=== PATIENT | female | born 1995 | race Caucasian/White ===

== ENCOUNTER 2018-08-13 12:01 | Emergency (ER) | payer SELFPAY ==
[~2018-08-13] VITALS: Ht 172.7 cm; Wt 61.2 kg
[2018-08-13 12:53] LABS: BACTERIA,URINE MANY /HPF (0-FEW); BILIRUBIN,URINE NEG (NEG); CLARITY,URINE HAZY; COLOR,URINE YELLOW; GLUCOSE,URINE NEG (NEG); NITRITE,URINE NEG (NEG); SQUAMOUS EPITHELIAL CELL,UR MANY /LPF; U PREG PATIENT NEGATIVE (NEG); UROBILINOGEN,URINE 0.2 mg/dL (0.2 mg/dL)
[2018-08-13] MEDS ORDERED: PHEN100T82 PO (13:05)
[2018-08-13] MEDS ORDERED: CIPR250T30 PO (13:05)
--- NOTE | 2018-08-13 13:05 | PHYS DOC ---
Past History Past Medical History: No Pertinent History Past Surgical History: No Surgical History Alcohol Use: None Drug Use: None Adult General Chief Complaint Chief Complaint: PAIN ON URINATION [facility] Patient is a 23 year old female who presents with complaining of painful urination for the last 3 days with decrease of urine output and urinary frequency and dysuria. Patient denies fever and chills, nausea and vomiting, abdominal pain, vaginal bleeding or discharge. Patient states she had history of UTI but this time her symptoms did not get better with [id number] medication. Review of Systems Review of Systems Constitutional: Denies fever or chills [] Eyes: Denies change in visual acuity, redness, or eye pain [] HENT: Denies nasal congestion or sore throat [] Respiratory: Denies cough or shortness of breath [] Cardiovascular: No additional information not addressed in [facility] [] GI: Denies abdominal pain, nausea, vomiting, bloody stools or diarrhea [] : Reports dysuria Musculoskeletal: Denies back pain or joint pain [] Integument: Denies rash or skin lesions [] Neurologic: Denies headache, focal weakness or sensory changes [] Endocrine: Denies polyuria or polydipsia [] All other systems were reviewed and found to be within normal limits, except as documented in this note. Allergies Allergies Allergies Coded Allergies Type Severity Reaction Last Updated Verified No Known Drug Allergies 08/13/18 No Physical Exam Physical Exam Constitutional: Well developed, well nourished, no acute distress, non-toxic appearance. [] HENT: Normocephalic, atraumatic Eyes: PERRLA, EOMI, conjunctiva normal, no discharge. [] Neck: Normal range of motion, no tenderness, supple, no stridor. [] Cardiovascular:Heart rate regular rhythm, no murmur [] Lungs & Thorax: Bilateral breath sounds clear to auscultation [] Abdomen: Bowel sounds normal, soft, no tenderness, no masses, no pulsatile masses. [] Skin: Warm, dry, no erythema, no rash. [] Back: No tenderness, no CVA tenderness. [] Extremities: No tenderness, no cyanosis, no clubbing, ROM intact, no edema. [] Neurologic: Alert and oriented X 3, normal motor function, normal sensory function, no focal deficits noted. [] Psychologic: Affect normal, judgement normal, mood normal. [] Current Patient Data Vital Signs Vital Signs Date Time Temp Pulse Resp B/P (MAP) Pulse Ox O2 Delivery O2 Flow Rate FiO2 08/13/18 12:12 97.8 90 18 99 Room Air Lab Results Laboratory Tests Test 08/13/18 12:30 Urine Collection Type Unknown Urine Color Yellow Urine Clarity Hazy Urine pH 5.5 Urine Specific [place] <=1.005 Urine Protein Neg (NEG-TRACE) Urine Glucose (UA) Neg mg/dL (NEG) Urine Ketones (Stick) Neg mg/dL (NEG) Urine Blood Small (NEG) Urine Nitrite Neg (NEG) Urine Bilirubin Neg (NEG) Urine Urobilinogen Dipstick 0.2 mg/dL (0.2 mg/dL) Urine Leukocyte Esterase Small (NEG) Urine RBC 1-2 /HPF (0-2) Urine WBC 5-10 /HPF (0-4) Urine Squamous Epithelial Cells Many /LPF Urine Bacteria Many /HPF (0-FEW) Urine Test Negative (NEG) EKG EKG [] Radiology/Procedures Radiology/Procedures [] Course & Med Decision Making Course & Med Decision Making Pertinent Labs reviewed. (See chart for details) discharge: I've spoken with the patient and/or caregivers. I've explained the patient's condition, diagnosis and treatment plan based on information available to me at this time. I've answered the patient's and/or caregivers questions and addressed any concerns. The patient and/or caregivers have a good understanding the patient's diagnosis, condition and treatment plan as can be expected at this point. Vital signs have been stabilized. The patient's condition is stable for discharge from the emergency department. The patient will pursue further outpatient evaluation with her primary care provider or other designated consulting physician as outlined in the discharge instructions. Patient and/or caregivers are agreeable to this plan of care and follow-up instructions have been explained in detail. The patient and/or caregivers have received these instructions in written format and expressed understanding of these discharge instructions. The patient and her caregivers are aware that if any significant change in condition or worsening of symptoms should prompt him to immediately return to this of the closest emergency department. If an emergent department is not readily available I would encourage him to call 911. Karissa Disclaimer Zainabon Disclaimer This electronic medical record was generated, in whole or in part, using a voice recognition dictation system. Departure Departure: Impression: Primary Impression: Urinary tract infection Additional Impression: Dysuria Disposition: HOME, SELF-CARE (at 1302) Condition: STABLE Referrals: PCP,NO (PCP) Patient Instructions: Dysuria, Urinary Tract Infection Additional Instructions: Drink plenty of liquids Follow-up with your primary care physician in 3-5 days Return to ER if not getting better Scripts Phenazopyridine Hcl (PYRIDIUM) 100 Mg Tablet 100 MG PO BID for dysuria, #10 TAB Prov: NENO DEL ROSARIO MD 08/13/18 Ciprofloxacin Hcl (CIPRO) 250 Mg Tablet 1 TAB PO BID for urinary tract infection, #14 TAB Prov: NENO DEL ROSARIO MD 08/13/18 Problem Qualifiers NENO DEL ROSARIO MD Aug 13, 2018 13:05
[2018-08-13 13:10] VITALS: BP 108/60
== END 2018-08-13 13:11 | disposition home or self-care (01) ==
LOC: ER 12:01
DX: N39.0 Urinary tract infection, site not specified (principal)
CPT/HCPCS: 81001; 81025; 87086; 99284

== ENCOUNTER 2018-08-15 20:35 | Emergency (ER) | payer SELFPAY ==
[~2018-08-15] VITALS: Ht 160 cm; Wt 59.9 kg
[~2018-08-15 20:35] MED LIST: CIPR250T30 PO; PHEN100T82 PO
[2018-08-15 21:11] LABS: BASO % 0 % (0-3); EOS # 0.1 x10^3/uL (0.0-0.7); EOS % 1 % (0-3); HEMATOCRIT 40.3 % (36.0-47.0); HEMOGLOBIN 13.5 g/dL (12.0-15.5); LYMPH # 2.1 x10^3/uL (1.0-4.8); LYMPH % 28 % (24-48); MEAN CORPUSCULAR HEMOGLOBIN 31 pg (25-35); MEAN CORPUSCULAR HGB CONC 34 g/dL (31-37); MEAN CORPUSCULAR VOLUME 94 fL (79-100); MONO # 0.8 x10^3/uL (0.0-1.1); MONO % 10 % (0-9); NEUT # 4.6 x10^3uL (1.8-7.7); NEUT % 60 % (31-73); PLATELET COUNT 252 x10^3/uL (140-400); RED BLOOD COUNT 4.31 x10^6/uL (3.50-5.40); RED CELL DISTRIBUTION WIDTH 13.4 % (11.5-14.5); WHITE BLOOD COUNT 7.6 x10^3/uL (4.0-11.0)
[2018-08-15] MEDS ORDERED: CONTRAST GIVEN MC PRN (21:15)
[2018-08-15 21:19] LABS: CALCIUM 9.3 mg/dL (8.5-10.1); CREATININE 0.8 mg/dL (0.6-1.0); GFR 87.4; POTASSIUM 3.2 mmol/L (3.5-5.1)
[2018-08-15] MEDS: IOHEXOL 300 MG/ML 75 ML VIAL. IV ONE (21:21)
[2018-08-15] MEDS: KETOROLAC 30 MG/ML VIAL. IV ONE (21:38)
[2018-08-15] MEDS: MORPHINE SULFATE 4 MG/ML DISP.SYRIN. IV ONE ×2 (21:39→22:58)
--- NOTE | 2018-08-15 22:01 | RAD ---
EXAM: Neck CT with intravenous contrast. HISTORY: Posterior auricular abscesses. TECHNIQUE: Computed tomographic images of the neck were obtained following the administration of 75 cc Omnipaque 300 intravenous contrast. *One or more of the following individualized dose reduction techniques were utilized for this examination: 1. Automated exposure control. 2. Adjustment of the mA and/or kV according to patient size. 3. Use of iterative reconstruction technique. COMPARISON: None. FINDINGS: There are small left complex fluid collections with surrounding fatty stranding within the soft tissues posterior to the left greater than right ear, measuring approximately 0.9 cm on the right and 1.3 cm on the left. The adjacent mastoid air cells are clear. The temporomandibular joints are intact. The parotid, submandibular and thyroid glands are unremarkable. The visualized portions the brain are unremarkable. The orbits are unremarkable. There is a tiny focus of mucosal thickening or mucus retention cyst within the sphenoid sinus. There is attenuation of the ostiomeatal units. There is a right shanika bullosa. There is no significant nasal septal deviation. There are caries within the left there maxillary molar and right first maxillary incisor. There are few prominent cervical chain lymph nodes, within physiologic limits for a patient of this age. The airways midline and widely patent. The lung apices are unremarkable. There is no suspicious osseous lesion. IMPRESSION: 1. Small complicated fluid collections with surrounding fatty stranding within the left greater than right posterior auricular soft tissues, suggesting small abscesses/phlegmons. The adjacent mastoid air cells are clear. 2. Suspected right first maxillary incisor and left third maxillary molar caries. No periapical abscess is seen. Electronically signed by: Luisa Thorne MD (08/15/2018 9:57 PM) [facility]
[2018-08-15] MEDS ORDERED: IBUP800T19 PO (22:33)
[2018-08-15] MEDS ORDERED: SULF1TAB24 PO (22:33)
[2018-08-15] MEDS ORDERED: HYDR-971 PO (22:33)
--- NOTE | 2018-08-15 22:40 | PHYS DOC ---
Adult General Chief Complaint Chief Complaint scalp lesions HPI HPI 23 years old female presented to the emergency department with legions behind her ear describes a tender swollen, warm to touch started about a week ago no fever no chills no headache She stated is initially was a pimple she scratched it multiple times and then she noticed a got bigger and more tender and noticed drainage from the left side Review of Systems Review of Systems Constitutional: Denies fever or chills [] Eyes: Denies change in visual acuity, redness, or eye pain [] HENT: Denies nasal congestion or sore throat [] Respiratory: Denies cough or shortness of breath [] Cardiovascular: No additional information not addressed in HPI [] GI: Denies abdominal pain, nausea, vomiting, bloody stools or diarrhea [] : Denies dysuria or hematuria [] Musculoskeletal: Denies back pain or joint pain [] Integument: Denies rash or skin lesions [] Neurologic: Denies headache, focal weakness or sensory changes [] Endocrine: Denies polyuria or polydipsia [] All other systems were reviewed and found to be within normal limits, except as documented in this note. Current Medications Current Medications Current Medications Medications (Trade) Dose Ordered Sig/Anjelica Start Time Stop Time Status Last Admin Dose Admin Info (Do NOT chart on this entry -- for MONITORING) 1 each PRN DAILY PRN 08/15/18 21:15 08/17/18 21:14 Iohexol (Omnipaque 300 Mg/ml) 75 ml 1X ONCE 08/15/18 21:30 08/15/18 21:31 DC 08/15/18 21:21 75 ML Ketorolac Tromethamine (Toradol 30mg Vial) 30 mg 1X ONCE 08/15/18 21:30 08/15/18 21:31 DC 08/15/18 21:38 30 MG Morphine Sulfate (Morphine 4mg Syringe) 4 mg 1X ONCE 08/15/18 23:00 08/15/18 23:01 Vancomycin HCl 1 gm/Sodium Chloride 250 ml @ 250 mls/hr 1X ONCE 08/15/18 22:45 08/15/18 23:44 UNV Allergies Allergies Allergies Coded Allergies Type Severity Reaction Last Updated Verified No Known Drug Allergies 08/13/18 No Physical Exam Physical Exam Constitutional: Well developed, well nourished, no acute distress, non-toxic appearance. [] HENT: Normocephalic, atraumatic, bilateral external ears normal, oropharynx moist, no oral exudates, nose normal. [] Eyes: PERRLA, EOMI, conjunctiva normal, no discharge. [] Neck: Normal range of motion, no tenderness, supple, no stridor. [] Cardiovascular:Heart rate regular rhythm, no murmur [] Lungs & Thorax: Bilateral breath sounds clear to auscultation [] Abdomen: Bowel sounds normal, soft, no tenderness, no masses, no pulsatile masses. [] Skin: 2 x 2 cm abscess on the scalp behind both ears bilaterally Back: No tenderness, no CVA tenderness. [] Extremities: No tenderness, no cyanosis, no clubbing, ROM intact, no edema. [] Neurologic: Alert and oriented X 3, normal motor function, normal sensory function, no focal deficits noted. [] Psychologic: Affect normal, judgement normal, mood normal. [] Current Patient Data Vital Signs Vital Signs Date Time Temp Pulse Resp B/P (MAP) Pulse Ox O2 Delivery O2 Flow Rate FiO2 08/15/18 21:39 18 98 Room Air 08/15/18 20:48 99.5 116 Lab Results Laboratory Tests Test 08/15/18 21:00 White Blood Count 7.6 x10^3/uL (4.0-11.0) Red Blood Count 4.31 x10^6/uL (3.50-5.40) Hemoglobin 13.5 g/dL (12.0-15.5) Hematocrit 40.3 % (36.0-47.0) Mean Corpuscular Volume 94 fL (79-100) Mean Corpuscular Hemoglobin 31 pg (25-35) Mean Corpuscular Hemoglobin Concent 34 g/dL (31-37) Red Cell Distribution Width 13.4 % (11.5-14.5) Platelet Count 252 x10^3/uL (140-400) Neutrophils (%) (Auto) 60 % (31-73) Lymphocytes (%) (Auto) 28 % (24-48) Monocytes (%) (Auto) 10 % (0-9) H Eosinophils (%) (Auto) 1 % (0-3) Basophils (%) (Auto) 0 % (0-3) Neutrophils # (Auto) 4.6 x10^3uL (1.8-7.7) Lymphocytes # (Auto) 2.1 x10^3/uL (1.0-4.8) Monocytes # (Auto) 0.8 x10^3/uL (0.0-1.1) Eosinophils # (Auto) 0.1 x10^3/uL (0.0-0.7) Basophils # (Auto) 0.0 x10^3/uL (0.0-0.2) Sodium Level 137 mmol/L (136-145) Potassium Level 3.2 mmol/L (3.5-5.1) L Chloride Level 100 mmol/L (98-107) Carbon Dioxide Level 31 mmol/L (21-32) Anion Gap 6 (6-14) Blood Urea Nitrogen 13 mg/dL (7-20) Creatinine 0.8 mg/dL (0.6-1.0) Estimated GFR (Cockcroft-Gault) 87.4 Glucose Level 96 mg/dL (70-99) Calcium Level 9.3 mg/dL (8.5-10.1) EKG EKG [] Radiology/Procedures Radiology/Procedures [] Impressions: MPRESSION: 1. Small complicated fluid collections with surrounding fatty stranding within the left greater than right posterior auricular soft tissues, suggesting small abscesses/phlegmons. The adjacent mastoid air cells are clear. 2. Suspected right first maxillary incisor and left third maxillary molar caries. No periapical abscess is seen. Course & Med Decision Making Course & Med Decision Making Pertinent Labs and Imaging studies reviewed. (See chart for details) [] Final Impression Final Impression Abscess drainage consent obtained Routine skin prep Lidocaine 2% to use locally Blade size 11 used Manual decompression with irrigation about 5 mL of pus drained want irrigated with normal saline 500 mL Culture sent[] Problems: (1) Scalp abscess Dragon Disclaimer Dragon Disclaimer This electronic medical record was generated, in whole or in part, using a voice recognition dictation system. CA HAM MD Aug 15, 2018 22:40
[2018-08-15] MEDS ORDERED: IV NORMAL SALINE 250ML 250 ML ONE (22:54)
[2018-08-15] MEDS ORDERED: VANCOMYCIN 1 GM VIAL. ONE ×2 (22:54)
[2018-08-15] MEDS: VANCOMYCIN 1 GM in IV NORMAL SALINE 250ML 250 ML IV ONE (22:59)
[2018-08-16] VITALS: BP 111/72
== END 2018-08-16 00:17 | disposition home or self-care (01) ==
LOC: ER 20:35
DX: L02.811 Cutaneous abscess of head [any part, except face] (principal)
CPT/HCPCS: 10060; 36415; 70491; 80048; 85025; 87070; 96365; 96375; 96376; 99285; J1885; J2270; J3370; J7050; Q9967

== ENCOUNTER 2018-11-22 21:24 | Emergency (ER) | payer SELFPAY ==
[~2018-11-22] VITALS: Ht 162.6 cm; Wt 56.2 kg
[~2018-11-22 21:24] MED LIST changes: +HYDR-3165 PO; +IBUP800T19 PO; +SULF1TAB24 PO
--- NOTE | 2018-11-22 22:02 | ED.ADGEN ---
Past History Past Medical History: No Pertinent History Past Surgical History: No Surgical History Alcohol Use: None Drug Use: None Adult General Chief Complaint Chief Complaint DYSPNEA HPI HPI 23 years old female presented to the emergency department by ambulance stated I don't feel good she stated that she smokes weed AND then ate weed candy that she started experiencing weird feelings associated with shortness of breath and nausea no on any other symptoms Review of Systems Review of Systems Constitutional: Denies fever or chills [] Eyes: Denies change in visual acuity, redness, or eye pain [] HENT: Denies nasal congestion or sore throat [] Respiratory: Denies cough or shortness of breath [] Cardiovascular: No additional information not addressed in HPI [] GI: Denies abdominal pain, nausea, vomiting, bloody stools or diarrhea [] : Denies dysuria or hematuria [] Musculoskeletal: Denies back pain or joint pain [] Integument: Denies rash or skin lesions [] Neurologic: Denies headache, focal weakness Endocrine: Denies polyuria or polydipsia [] All other systems were reviewed and found to be within normal limits, except as documented in this note. Current Medications Current Medications Current Medications Medications (Trade) Dose Ordered Sig/Anjelica Start Time Stop Time Status Last Admin Dose Admin Sodium Chloride 1,000 ml @ 1,000 mls/hr 1X ONCE 11/22/18 22:30 11/22/18 23:29 Allergies Allergies Allergies Coded Allergies Type Severity Reaction Last Updated Verified No Known Drug Allergies 11/22/18 No Physical Exam Physical Exam HENT: Normocephalic, atraumatic, bilateral external ears normal, oropharynx moist, no oral exudates, nose normal. [] Eyes: PERRLA, EOMI, conjunctiva normal, no discharge. [] Neck: Normal range of motion, no tenderness, supple, no stridor. [] Cardiovascular:Heart rate regular rhythm, no murmur [] Lungs & Thorax: Bilateral breath sounds clear to auscultation [] Abdomen: Bowel sounds normal, soft, no tenderness, no masses, no pulsatile masses. [] Skin: Warm, dry, no erythema, no rash. [] Back: No tenderness, no CVA tenderness. [] Extremities: No tenderness, no cyanosis, no clubbing, ROM intact, no edema. [] Neurologic: Alert and oriented X 3, normal motor function, normal sensory function, no focal deficits noted. [] Current Patient Data Vital Signs Vital Signs Date Time Temp Pulse Resp B/P (MAP) Pulse Ox O2 Delivery O2 Flow Rate FiO2 11/22/18 22:01 97.7 75 13 100 Room Air Lab Results Laboratory Tests Test 11/22/18 22:20 11/22/18 22:25 11/22/18 22:36 White Blood Count 8.0 x10^3/uL (4.0-11.0) Red Blood Count 4.33 x10^6/uL (3.50-5.40) Hemoglobin 13.4 g/dL (12.0-15.5) Hematocrit 41.0 % (36.0-47.0) Mean Corpuscular Volume 95 fL (79-100) Mean Corpuscular Hemoglobin 31 pg (25-35) Mean Corpuscular Hemoglobin Concent 33 g/dL (31-37) Red Cell Distribution Width 14.5 % (11.5-14.5) Platelet Count 268 x10^3/uL (140-400) Neutrophils (%) (Auto) 59 % (31-73) Lymphocytes (%) (Auto) 29 % (24-48) Monocytes (%) (Auto) 11 % (0-9) H Eosinophils (%) (Auto) 0 % (0-3) Basophils (%) (Auto) 1 % (0-3) Neutrophils # (Auto) 4.7 x10^3uL (1.8-7.7) Lymphocytes # (Auto) 2.3 x10^3/uL (1.0-4.8) Monocytes # (Auto) 0.9 x10^3/uL (0.0-1.1) Eosinophils # (Auto) 0.0 x10^3/uL (0.0-0.7) Basophils # (Auto) 0.0 x10^3/uL (0.0-0.2) Sodium Level 143 mmol/L (136-145) Potassium Level 3.6 mmol/L (3.5-5.1) Chloride Level 106 mmol/L (98-107) Carbon Dioxide Level 29 mmol/L (21-32) Anion Gap 8 (6-14) Blood Urea Nitrogen 17 mg/dL (7-20) Creatinine 0.8 mg/dL (0.6-1.0) Estimated GFR (Cockcroft-Gault) 87.4 Glucose Level 112 mg/dL (70-99) H Calcium Level 8.6 mg/dL (8.5-10.1) Urine Opiates Screen Pos (NEG) Urine Methadone Screen Neg (NEG) Urine Barbiturates Neg (NEG) Urine Phencyclidine Screen Neg (NEG) Urine Amphetamine/Methamphetamine Pos (NEG) Urine Benzodiazepines Screen Neg (NEG) Urine Cocaine Screen Neg (NEG) Urine Cannabinoids Screen Pos (NEG) Urine Ethyl Alcohol Neg (NEG) POC Urine HCG, Qualitative hcg negative (Negative) EKG EKG [] Radiology/Procedures Radiology/Procedures [] Course & Med Decision Making Course & Med Decision Making Pertinent Labs and Imaging studies reviewed. (See chart for details) [] Final Impression Final Impression [] Problems: (1) Drug addiction Dragon Disclaimer Dragon Disclaimer This electronic medical record was generated, in whole or in part, using a voice recognition dictation system. CA HAM MD Nov 22, 2018 22:02
[2018-11-22] MEDS ORDERED: IV NORMAL SALINE 1,000ML 1,000 ML IV ONE (22:30)
[2018-11-22 22:46] LABS: BASO % 1 % (0-3); EOS % 0 % (0-3); HEMOGLOBIN 13.4 g/dL (12.0-15.5); LYMPH # 2.3 x10^3/uL (1.0-4.8); LYMPH % 29 % (24-48); MEAN CORPUSCULAR HEMOGLOBIN 31 pg (25-35); MEAN CORPUSCULAR HGB CONC 33 g/dL (31-37); MEAN CORPUSCULAR VOLUME 95 fL (79-100); MONO # 0.9 x10^3/uL (0.0-1.1); MONO % 11 % (0-9); NEUT # 4.7 x10^3uL (1.8-7.7); NEUT % 59 % (31-73); PLATELET COUNT 268 x10^3/uL (140-400); RED BLOOD COUNT 4.33 x10^6/uL (3.50-5.40); RED CELL DISTRIBUTION WIDTH 14.5 % (11.5-14.5)
[2018-11-22 22:49] LABS: BARBITURATES NEG (NEG); BENZODIAZEPINES NEG (NEG); CANNABINOIDS POS (NEG); COCAINE NEG (NEG); METHADONE NEG (NEG); OPIATES POS (NEG); PHENCYCLIDINE NEG (NEG)
[2018-11-22 22:50] LABS: AMPHETAMINE/METHAMPHETAMINE POS (NEG)
[2018-11-22 22:53] LABS: CALCIUM 8.6 mg/dL (8.5-10.1); CREATININE 0.8 mg/dL (0.6-1.0); GFR 87.4; POTASSIUM 3.6 mmol/L (3.5-5.1)
--- NOTE | 2018-11-22 22:54 | RAD ---
AP portable chest radiograph 11/22/2018 Clinical History: Shortness of breath. An AP erect portable digital radiograph of the chest was obtained. No previous studies are available for comparison. The cardiac and mediastinal silhouettes are within normal limits in size and configuration. No acute pulmonary infiltrate is seen. No pleural effusion or pneumothorax is noted. The osseous structures are grossly intact. IMPRESSION: No acute abnormality is seen. Electronically signed by: David Barnett MD (11/22/2018 10:52 PM) [facility]
[2018-11-22 23:20] VITALS: BP 110/60
== END 2018-11-22 23:09 | disposition home or self-care (01) ==
LOC: ER 21:24
DX: F12.20 Cannabis dependence, uncomplicated (principal)
CPT/HCPCS: 36415; 71045; 80048; 80307; 81025; 85025; 99284; G0480; J7030

== ENCOUNTER 2020-03-17 20:51 | Emergency (ER) | payer SELFPAY ==
[~2020-03-17] VITALS: Ht 162.6 cm; Wt 57.0 kg
[2020-03-17 20:51] VITALS: BP 117/71
[2020-03-17] MEDS ORDERED: ERYTHROMYCIN 0.5% OPHTH OINTMENT 1GM TUBE. OU ONE (21:30)
[2020-03-17] MEDS ORDERED: cefTRIAXone IM 1 GM VIAL IM ONE (21:30)
[2020-03-17] MEDS ORDERED: CEPH500C PO (21:30)
--- NOTE | 2020-03-17 21:31 | PHYS DOC ---
Past History Past Medical History: No Pertinent History Past Surgical History: No Surgical History Smoking: Cigarettes Alcohol Use: None Drug Use: Heroin, Marijuana General Adult EDM: Chief Complaint: EYE PROBLEMS HPI: HPI: Patient is a 25 year old female who presents for evaluation of a bilateral eye redness with obvious infection. There is yellow and greenish drainage coming from both eyes. There was significant conjunctival redness as well. Patient is here with her domestic partner who has a similar eye infection but not nearly as severe. Patient is complaining of some mild blurred vision but no fevers and chills. Patient has no other physical complaints. Symptoms been progressing for more than 1 week. Review of Systems: Review of Systems: Constitutional: Denies fever or chills Eyes: Bilateral eye redness, blurred vision reported, crusting and drainage noted HENT: Denies nasal congestion or sore throat Respiratory: Denies cough or shortness of breath Cardiovascular: Denies chest pain or edema GI: Denies abdominal pain, nausea, vomiting, bloody stools or diarrhea : Denies dysuria Musculoskeletal: Denies back pain or joint pain Integument: Denies rash Neurologic: Denies headache, focal weakness or sensory changes Endocrine: Denies polyuria or polydipsia Lymphatic: Denies swollen glands Psychiatric: Denies depression or anxiety Heart Score: Risk Factors: Risk Factors: DM, Current or recent (<one month) smoker, HTN, HLP, family history of CAD, obesity. Risk Scores: Score 0 - 3: 2.5% MACE over next 6 weeks - Discharge Home Score 4 - 6: 20.3% MACE over next 6 weeks - Admit for Clinical Observation Score 7 - 10: 72.7% MACE over next 6 weeks - Early Invasive Strategies Current Medications: Current Meds: Current Medications Medications (Trade) Dose Ordered Sig/Anjelica Start Time Stop Time Status Last Admin Dose Admin Ceftriaxone Sodium (Rocephin Im) 1 gm 1X ONCE 03/17/20 21:30 03/17/20 21:31 Erythromycin (Romycin) 0.25 inch 1X ONCE 03/17/20 21:30 03/17/20 21:31 Allergies: Allergies: Allergies Coded Allergies Type Severity Reaction Last Updated Verified No Known Drug Allergies 11/22/18 No Physical Exam: PE: Constitutional: Well developed, well nourished, mild acute distress, non-toxic appearance. [] HENT: Normocephalic, atraumatic, bilateral external ears normal, oropharynx moist, no oral exudates, nose normal. [] Eyes: PERRL, EOMI, bilateral chemosis and conjunctival erythema noted, yellow- green drainage noted both eyes, no obvious periorbital cellulitis noted, blurry vision reported with some mild diminished vision bilaterally. No obvious corneal injury noted [] Neck: Normal range of motion, no tenderness, supple, no stridor. [] Cardiovascular:Heart rate regular rhythm, no murmur [] Lungs & Thorax: Bilateral breath sounds clear to auscultation [] Abdomen: Bowel sounds normal, soft, no tenderness, no masses [] Skin: Warm, dry, no erythema, no rash. [] Back: No tenderness. [] Extremities: No tenderness, no cyanosis, no clubbing, ROM intact, no edema. [] Neurologic: Alert and oriented X 3, normal motor function, normal sensory function, no focal deficits noted. [] Psychologic: Affect normal, judgement normal, mood normal. [] Current Patient Data: Vital Signs: Vital Signs Date Time Temp Pulse Resp B/P (MAP) Pulse Ox O2 Delivery O2 Flow Rate FiO2 20 20:51 98.6 95 16 117/71 (86) 100 Room Air EKG: EKG: [] Radiology/Procedures: Radiology/Procedures: [] Course & Med Decision Making: Course & Med Decision Making Pertinent Labs and Imaging studies reviewed. (See chart for details) Patient has a significant bilateral probable bacterial conjunctivitis, it is moderately advanced at this time. Some mild vision changes noted. Patient had Gram stain cultures collected from the eye drainage. Patient given an injection of Rocephin 1 g IM. Furthermore patient will be started on erythromycin ointment to use quarter inch both lower lids 4 times a day for the next 5 days. I stressed with the patient it is imperative that she have an eye doctor recheck her eye in the next 24 to 48 hours. Should she develop worsening symptoms she should come back to the hospital. There is no obvious clinical evidence of preseptal cellulitis or abscess. Prescription for Keflex given in addition to the erythromycin ointment that was dispensed Karissa Disclaimer: Karissa Disclaimer: This electronic medical record was generated, in whole or in part, using a voice recognition dictation system. Departure Departure: Impression: Primary Impression: Bacterial conjunctivitis of both eyes Additional Impression: Drug addiction Disposition: 01 HOME/RESIDENCE PRIOR TO ADM Condition: STABLE Referrals: PCP,NO (PCP) CINDY LOYA MD Patient Instructions: Bacterial Conjunctivitis, Drug Abuse, FAQs Additional Instructions: Use the erythromycin ointment 4 times a day on the lower lids for the next 5 days. Take the Keflex as directed as well. It is imperative that you follow-up with an eye doctor in the next 24 to 48 hours for recheck. You have vision changes and we need to make sure this infection improves. Failure to have close follow-up could result in worsening condition, blindness etc. Scripts Cephalexin (CEPHALEXIN) 500 Mg Capsule 1 CAP PO QID for eye infection, #40 CAP Prov: LYNN LÓPEZ DO 03/17/20 Justification of Admission: Justification of Admission: Justification of Admission Dx: N/A LYNN LÓPEZ DO Mar 17, 2020 21:31
== END 2020-03-17 21:40 | disposition home or self-care (01) ==
LOC: ER 20:51
DX: H10.89 Other conjunctivitis (principal); B97.89 Other viral agents as the cause of diseases classified elsewhere; F19.20 Other psychoactive substance dependence, uncomplicated; F17.210 Nicotine dependence, cigarettes, uncomplicated; F12.10 Cannabis abuse, uncomplicated
CPT/HCPCS: 87070; 96372; 99283; J0696

== ENCOUNTER 2020-10-27 14:17 | Emergency (ER) | payer SELFPAY ==
[~2020-10-27] VITALS: Ht 160 cm; Wt 54.0 kg
[~2020-10-27 14:17] MED LIST changes: +CEPH500C PO
[2020-10-27] MEDS ORDERED: IV NORMAL SALINE 1,000ML 1,000 ML IV ONE (14:30)
[2020-10-27] MEDS ORDERED: cefTRIAXone SODIUM 1 GM VIAL ONE (14:38)
[2020-10-27] MEDS ORDERED: IV NORMAL SALINE 50ML 50 ML ONE (14:39)
--- NOTE | 2020-10-27 14:40 | PHYS DOC ---
Past History Past Medical History: No Pertinent History (MARC MCDONOUGH APRN) Past Surgical History: No Surgical History (MARC MCDONOUGH APRN) Smoking: Cigarettes Alcohol Use: None Drug Use: Heroin, Marijuana (MARC MCDONOUGH APRN) Adult General Chief Complaint Chief Complaint: SORE THROAT HPI HPI Patient is a 25 year old female patient who presents with facial and neck swelling for the past 3 days, worsening each day. States she has not been able to eat or drink much and has seemed to be unable to swallow well. States no fevers, no nausea, no vomiting. States her neck and throat just feel very swollen and sore. Denies exposure to other ill persons. States she has never had this in the past and has not taken any medications for her swelling. (MARC MCDONOUGH APRN) Review of Systems Review of Systems Constitutional: Denies fever reports she has had some chills and malaise Eyes: Denies change in visual acuity, redness, or eye pain [] HENT: Denies nasal congestion. states discomfort to throat and neck, states swelling to neck. Respiratory: Denies cough or shortness of breath [] Cardiovascular: No additional information not addressed in HPI [] GI: Denies abdominal pain, nausea, vomiting, bloody stools or diarrhea [] : Denies dysuria or hematuria [] Musculoskeletal: Denies back pain or joint pain [] Integument: Denies rash or skin lesions [] Neurologic: Denies headache, focal weakness or sensory changes [] Endocrine: Denies polyuria or polydipsia [] All other systems were reviewed and found to be within normal limits, except as documented in this note. (MARC MCDONOUGH APRN) Current Medications Current Medications Current Medications Medications (Trade) Dose Ordered Sig/Anjelica Start Time Stop Time Status Last Admin Dose Admin Ceftriaxone Sodium 1 gm/ Sodium Chloride 50 ml @ 100 mls/hr 1X ONCE 10/27/20 14:30 10/27/20 14:59 UNV Sodium Chloride 1,000 ml @ 1,000 mls/hr 1X ONCE 10/27/20 14:30 10/27/20 15:29 UNV (MARC MCDONOUGH APRN) Allergies Allergies Allergies Coded Allergies Type Severity Reaction Last Updated Verified No Known Drug Allergies 11/22/18 No (MARC MCDONOUGH APRN) Physical Exam Physical Exam Constitutional: Well developed, well nourished, no acute distress, appears uncomfortable [] Converses with hoarse voice. HENT: Normocephalic, atraumatic, bilateral external ears normal, oropharynx moist, tongue with moderate swelling and erythema, sublingular area swollen, firm, tender with erythema. Limited ability to open mouth due to swelling, no bony tenderness of mandible. Poor dentition Eyes: PERRLA, EOMI, conjunctiva normal, no discharge. [] Neck: Normal range of motion, no tenderness, supple, no stridor on auscultation. Swollen anterior lymph nodes bilaterally. full ROM to neck[] Cardiovascular:Heart rate regular rhythm, no murmur [] tachycardic Lungs & Thorax: Bilateral breath sounds clear to auscultation [] Abdomen: Bowel sounds normal, soft, no tenderness, no masses, no pulsatile masses. [] Skin: Warm, dry, no erythema, no rash. [] Several facial lesions noted, with large amount of makeup over face and concealing lesions. Back: No tenderness, no CVA tenderness. [] Extremities: No tenderness, no cyanosis, no clubbing, ROM intact, no edema. [] Neurologic: Alert and oriented X 3, normal motor function, normal sensory function, no focal deficits noted. [] Psychologic: Affect normal, judgement normal, mood normal. [] (MARC MCDONOUGH APRN) Physical Exam Constitutional: Well developed, well nourished, no acute distress, non-toxic appearance HENT: Normocephalic, atraumatic, submandubular swelling and induration noted, no gingival swelling noted Eyes: Conjunctiva normal, no discharge Neck: Normal range of motion, no tenderness, supple Lungs & Thorax: No respiratory distress, equal chest rise and fall Skin: Warm, dry, no erythema, no rash Extremities: No tenderness, ROM intact, no edema Neurologic: Alert and oriented X 3, no focal deficits noted Psychologic: Affect normal, judgment normal (MADDI MELO DO) Current Patient Data Vital Signs Vital Signs Date Time Temp Pulse Resp B/P (MAP) Pulse Ox O2 Delivery O2 Flow Rate FiO2 10/27/20 14:20 99.4 122 24 126/77 (93) 100 (MARC MCDONOUGH APRN) EKG EKG [] (MARC MCDONOUGH APRN) Radiology/Procedures Radiology/Procedures NDICATION: Reason: fever / Spl. Instructions: / History: COMPARISON: November 2018 FINDINGS: Single view of chest obtained. No focal airspace consolidation. Cardiomediastinal contour unremarkable. No acute osseous abnormality. IMPRESSION: * No focal airspace consolidation or edema. * Groundglass nodular opacities seen on CT of the neck at the right upper lung is not well seen on plain film but could be infectious or inflammatory in nature. Electronically signed by: Aaliyah Nix MD (10/27/2020 4:11 PM) [id number] DICTATED AND SIGNED BY: AALIYAH NIX MD DATE: 10/27/20 160[] Exam: CT Neck with contrast INDICATION: Swelling TECHNIQUE: Sequential axial images through the neck obtained following the administration of 75 mL of Isovue-370 IV contrast. Sagittal and coronal reformatted images were reconstructed from the axial data and reviewed. Comparisons: 08/15/2018 FINDINGS: Visualized intracranial structures are unremarkable. Visualized paranasal sinuses and mastoid air cells are well-pneumatized. Cervical vasculature is patent. Nasopharynx, oropharynx, hypopharynx and larynx are unremarkable. There is a 1.6 cm peripherally enhancing fluid collection in the submental soft tissues. There is adjacent fat stranding and edema. Thyroid and salivary glands are within normal limits. There are several mildly enlarged submental lymph nodes noted. Patchy tree-in-bud nodularity noted in the superior segment of the right lower lobe. No suspicious osseous lesions or acute fractures. IMPRESSION: 1. A 1.6 cm peripherally enhancing fluid collection in the submental soft tissues favored represent abscess. 2. Patchy tree-in-bud nodularity of Mariee segment of the right upper lobe, may be infectious or inflammatory in etiology. Exposure: One or more of the following in the visualized dose reduction techniques were utilized for this examination: 1. Automated exposure control 2. Adjustment of the MA and/or KV according to patient size 3. Use of iterative of reconstructive technique Electronically signed by: Rowena Alcazar MD (10/27/2020 4:21 PM) [facility] (MARC MCDONOUGH APRN) Heart Score Risk Factors: Risk Factors: DM, Current or recent (<one month) smoker, HTN, HLP, family history of CAD, obesity. Risk Scores: Risk Factors: DM, Current or recent (<one month) smoker, HTN, HLP, family history of CAD, obesity. (MARC MCDONOUGH APRN) Course & Med Decision Making Course & Med Decision Making Pertinent Labs and Imaging studies reviewed. (See chart for details) []Patient with no airway concerns, conversational in room, no airway issues noted on imaging. Likely submental abscess due to poor dentition, will continue antibiotics and recommend patient follow up with dentist. Following fluids and IV ABx, she states she is feeling better. She looks more comfortable on reexamination. Is agreeable to discharge home with Rx for antibiotics and follow up (MARC MCDONOUGH APRN) Dragon Disclaimer Dragon Disclaimer This electronic medical record was generated, in whole or in part, using a voice recognition dictation system. (MARC MCDONOUGH APRN) Departure Departure: Impression: Primary Impression: Submental abscess Additional Impression: Poor dentition Disposition: 01 DC HOME SELF CARE/HOMELESS Condition: IMPROVED Referrals: PCP,NO (PCP) Patient Instructions: Abscess Additional Instructions: As discussed, you have an abscess under your tongue. Take the antibiotics as prescribed for the entire duration, even if you are feeling better. You should try to take some probiotics or even eat some yogurt with "active cultures" to help prevent yeast infections, which can be common with this medication. Make sure you are eating something when you take the medications. Get into a dentist to follow up about your teeth, as this may be a likely cause of your abscess. Scripts Clindamycin Hcl (CLINDAMYCIN HCL) 300 Mg Capsule 1 CAP PO TID for infection for 10 Days, #30 CAP Prov: MARC MCDONOUGH APRN 10/27/20 Attending Signature Attending Signature I have personally interviewed and examined the patient. All charts, labs, and imaging studies were reviewed. I agree with the PA/ICING COATER's findings, exam, and plan. (MADDI MELO DO) Problem Qualifiers MARC MCDONOUGH APRN Oct 27, 2020 14:40 MADDI MELO DO Oct 27, 2020 18:14
[2020-10-27] MEDS ORDERED: DEXAMETHASONE SOD PHOS 4 MG/ML VIAL. IVP ONE (14:45)
[2020-10-27] MEDS ORDERED: IOHEXOL 300 MG/ML 75 ML VIAL. IV ONE (14:45)
[2020-10-27] MEDS ORDERED: DEXAMETHASONE SOD PHOS 10 MG/ML VIAL. IV ONE (15:00)
[2020-10-27 15:01] LABS: BASO % 0 % (0-3); EOS # 0.1 x10^3/uL (0.0-0.7); EOS % 1 % (0-3); HEMOGLOBIN 12.4 g/dL (12.0-15.5); LYMPH # 1.4 x10^3/uL (1.0-4.8); LYMPH % 13 % (24-48); MEAN CORPUSCULAR HEMOGLOBIN 30 pg (25-35); MEAN CORPUSCULAR HGB CONC 33 g/dL (31-37); MEAN CORPUSCULAR VOLUME 93 fL (79-100); MONO # 0.9 x10^3/uL (0.0-1.1); MONO % 9 % (0-9); NEUT # 8.7 x10^3uL (1.8-7.7); NEUT % 78 % (31-73); PLATELET COUNT 335 x10^3/uL (140-400); RED CELL DISTRIBUTION WIDTH 13.8 % (11.5-14.5); WHITE BLOOD COUNT 11.1 x10^3/uL (4.0-11.0)
[2020-10-27 15:39] LABS: MONONUCLEOSIS PATIENT NEGATIVE (NEGATIVE)
--- NOTE | 2020-10-27 16:13 | RAD ---
INDICATION: Reason: fever / Spl. Instructions: / History: COMPARISON: November 2018 FINDINGS: Single view of chest obtained. No focal airspace consolidation. Cardiomediastinal contour unremarkable. No acute osseous abnormality. IMPRESSION: * No focal airspace consolidation or edema. * Groundglass nodular opacities seen on CT of the neck at the right upper lung is not well seen on p trini film but could be infectious or inflammatory in nature. Electronically signed by: Hernandez Daniel MD (10/27/2020 4:11 PM) [id number]
[2020-10-27 16:16] LABS: BLOOD UREA NITROGEN 11 mg/dL (7-20); BUN/CREATININE RATIO 14 (6-20); CALCIUM 8.8 mg/dL (8.5-10.1); CREATININE 0.8 mg/dL (0.6-1.0); GLUCOSE 97 mg/dL (70-99)
[2020-10-27 16:17] LABS: ANION GAP 6 (6-14); CHLORIDE 100 mmol/L (98-107); POTASSIUM 4.2 mmol/L (3.5-5.1); SODIUM 135 mmol/L (136-145)
--- NOTE | 2020-10-27 16:23 | RAD ---
Exam: CT Neck with contrast INDICATION: Swelling TECHNIQUE: Sequential axial images through the neck obtained following the administration of 75 mL of Isovue-370 IV contrast. Sagittal and coronal reformatted images were reconstructed from the axial da ta and reviewed. Comparisons: 08/15/2018 FINDINGS: Visualized intracranial structures are unremarkable. Visualized paranasal sinuses and mastoid air cells are well-pneumatized. Cervical vasculature is patent. Nasopharynx, oropharynx, hypopharynx and larynx are unremarkable. There is a 1.6 cm peripherally enhancing fluid collection in the submental soft tissues. There is adj acent fat stranding and edema. Thyroid and salivary glands are within normal limits. There are several mildly enlarged submental lymph nodes noted. Patchy tree-in-bud nodularity noted in the superior segment of the right lower lobe. No suspicious osseous lesions or acute fractures. IMPRESSION: 1. A 1.6 cm peripherally enhancing fluid collection in the submental soft tissues favored represent abscess. 2. Patchy tree-in-bud nodularity of Mariee segment of the right upper lobe, may be infectious or inf lammatory in etiology. Exposure: One or more of the following in the visualized dose reduction techniques were utilized for this examination: 1. Automated exposure control 2. Adjustment of the MA and/or KV according to patient size 3. Use of iterative of reconstructive technique Electronically signed by: Rowena Alcazar MD (10/27/2020 4:21 PM) [facility]
[2020-10-27 16:29] LABS: ALBUMIN/GLOBULIN RATIO 0.6 (1.0-1.7); ALK PHOS 110 U/L (46-116); ALT (SGPT) 17 U/L (14-59); AST (SGOT) 15 U/L (15-37); TOTAL BILIRUBIN 0.2 mg/dL (0.2-1.0); TOTAL PROTEIN 7.7 g/dL (6.4-8.2)
[2020-10-27 16:36] LABS: AMPHETAMINE/METHAMPHETAMINE POS (NEG); BARBITURATES NEG (NEG); BENZODIAZEPINES NEG (NEG); CANNABINOIDS NEG (NEG); COCAINE NEG (NEG); METHADONE NEG (NEG); OPIATES POS (NEG); PHENCYCLIDINE NEG (NEG)
[2020-10-27] MEDS ORDERED: CLIN300C9 PO (16:41)
[2020-10-27 16:47] LABS: BACTERIA,URINE 0 /HPF (0-FEW); BILIRUBIN,URINE NEG (NEG); CLARITY,URINE HAZY; COLOR,URINE YELLOW; GLUCOSE,URINE NEG (NEG); NITRITE,URINE POS (NEG); SQUAMOUS EPITHELIAL CELL,UR MOD /LPF; UROBILINOGEN,URINE 0.2 mg/dL (0.2 mg/dL)
[2020-10-27 17:10] LABS: AMORPHOUS SEDIMENT,UR PRESENT /HPF
[2020-10-27 22:22] LABS: % LYMPHS 14 % (24-48); % MONOS 7 % (0-10); % SEGS 79 % (35-66)
[2020-10-27 22:23] LABS: PLT ESTIMATE ADEQUATE (ADEQUATE)
== END 2020-10-27 16:50 | disposition home or self-care (01) ==
LOC: ER 14:17
DX: L02.01 Cutaneous abscess of face (principal); F17.210 Nicotine dependence, cigarettes, uncomplicated
CPT/HCPCS: 36415; 70491; 71045; 80053; 80307; 81001; 81025; 83605; 83735; 85007; 85025; 86308; 87040; 87070; 87086; 87880; 96365; 96375; 99285; J0696; J1100; J7030; Q9967

== ENCOUNTER 2021-01-26 11:47 | Emergency (ER) | payer SELFPAY ==
[~2021-01-26] VITALS: Ht 162.6 cm; Wt 84.0 kg
[~2021-01-26 11:47] MED LIST changes: +CLIN300C9 PO
[2021-01-26 12:03] VITALS: BP 114/86
--- NOTE | 2021-01-26 12:26 | PHYS DOC ---
Past History Past Medical History: No Pertinent History Past Surgical History: No Surgical History Smoking: Cigarettes Alcohol Use: None Drug Use: Heroin, Marijuana General Adult EDM: Chief Complaint: ABSCESS HPI: HPI: Patient is a 25-year-old female who presents with abscess above right eyebrow. Patient has swelling also to right eyelid. 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 Patient denies any visual changes. Denies fevers. Review of Systems: Review of Systems: Constitutional: Denies fever or chills Eyes: Denies change in visual acuity, reports swelling to right eyelid HENT: Denies nasal congestion or sore throat Respiratory: Denies cough or shortness of breath Cardiovascular: Denies chest pain or edema GI: Denies abdominal pain, nausea, vomiting, bloody stools or diarrhea : Denies dysuria Musculoskeletal: Denies back pain or joint pain Integument: Reports abscess to the right eye brow Neurologic: Denies headache, focal weakness or sensory changes Endocrine: Denies polyuria or polydipsia Lymphatic: Denies swollen glands Psychiatric: Denies depression or anxiety Allergies: Allergies: Allergies Coded Allergies Type Severity Reaction Last Updated Verified No Known Drug Allergies 10/27/20 No Physical Exam: PE: Constitutional: Well developed, well nourished, no acute distress, non-toxic appearance. [] HENT: Normocephalic, atraumatic, bilateral external ears normal, oropharynx moist, no oral exudates, nose normal. [] Eyes: PERRLA, no discharge, edema above right eye Neck: Normal range of motion, no tenderness, supple, no stridor. [] Cardiovascular:Heart rate regular rhythm, no murmur [] Lungs & Thorax: Bilateral breath sounds clear to auscultation [] Abdomen: Bowel sounds normal, soft, no tenderness, no masses, no pulsatile masses. [] Skin: Purulent discharge from abscess above right eyebrow Back: No tenderness, no CVA tenderness. [] Extremities: No tenderness, no cyanosis, no clubbing, ROM intact, no edema. [] Neurologic: Alert and oriented X 3, normal motor function, normal sensory function, no focal deficits noted. [] Psychologic: Affect normal, judgement normal, mood normal. [] Current Patient Data: Vital Signs: Vital Signs Date Time Temp Pulse Resp B/P (MAP) Pulse Ox O2 Delivery O2 Flow Rate FiO2 01/26/21 12:03 98.5 118 20 114/86 (95) 100 EKG: EKG: [] Radiology/Procedures: Radiology/Procedures: []CT ORBITS/SELLA WITH IV CONTRAST Indication: ABCESS ABOVE RIGHT EYE Comparison study: None. Technique: CT of the orbits was performed following intravenous administration of 75 cc Omnipaque 300 contrast. Sagittal and coronal reconstructions were performed. One or more of the following dose reduction techniques were utilized: Automated exposure control (AEC), Adjustment of mA and/or kV according to patient size, Use of iterative reconstruction technique such as ASiR, CT scan done according to ALARA and image gently/image wisely Findings: Right supraorbital skin thickening and subcutaneous stranding with peripherally enhancing collection measuring 7 x 8 mm. No post septal inflammation or fluid collection. Orbits and globes are normal. Visualized portions of the paranasal sinuses are well-aerated. No significant periodontal disease. No acute osseous abnormalities are detected. The temporomandibular joints demonstrate normal alignment. The visualized mastoid air cells are clear. The visualized portions of the parotid and submandibular glands are normal. The visualized aerodigestive tract is unremarkable. The visualized brain parenchyma is normal in attenuation. IMPRESSION: Right supraorbital cellulitis with 8 mm abscess. No postseptal extension. Electronically signed by: Johnie Ann MD (01/26/2021 1:16 PM) [id number] Heart Score: C/O Chest Pain: No Risk Factors: Risk Factors: DM, Current or recent (<one month) smoker, HTN, HLP, family history of CAD, obesity. Risk Scores: Score 0 - 3: 2.5% MACE over next 6 weeks - Discharge Home Score 4 - 6: 20.3% MACE over next 6 weeks - Admit for Clinical Observation Score 7 - 10: 72.7% MACE over next 6 weeks - Early Invasive Strategies Course & Med Decision Making: Course & Med Decision Making Pertinent Labs and Imaging studies reviewed. (See chart for details) [] Patient presents emergency room with an abscess above her right eyebrow. She reports that she has a history of abscesses and was told in the past that she has had MRSA. Patient states that she normally gets an antibiotic and infection clears. CT with contrast of the orbits shows right supraorbital cellulitis with 8 mm abscess. Attempted to I&D abscess. Patient was complaining of pain and would not allow me to make drain the abscess. Dr. Vuong spoke with patient and she allowed him to drain the abscess. Given aftercare instructions. Patient given antibiotic to treat infection. Patient was given 1 hydrocodone in the emergency room prior to discharge. Patient is to take ibuprofen and Tylenol at home for discomfort. Patient to return to the emergency room with signs of infection or fever. Karissa Disclaimer: Karissa Disclaimer: This electronic medical record was generated, in whole or in part, using a voice recognition dictation system. Departure Departure: Impression: Primary Impression: Abscess Disposition: HOME / SELF CARE / HOMELESS Referrals: PCP,NO (PCP) Patient Instructions: Abscess, Care After, Abscess, [id number] Scripts Amoxicillin/Potassium Clav (AUGMENTIN 875-125 TABLET) 1 Each Tablet 1 TAB PO BID for ABSCESS for 7 Days, #14 TAB 0 Refills Prov: DEMI GOODWIN APRN 01/26/21 Sulfamethoxazole/Trimethoprim (BACTRIM DS TABLET) 1 Each Tablet 1 TAB PO BID for ABSCESS for 7 Days, #14 TAB 0 Refills Prov: DEMI GOODWIN APRN 01/26/21 DEMI GOODWIN APRN Jan 26, 2021 12:26
[2021-01-26] MEDS ORDERED: SULF1TAB24 PO (12:34)
[2021-01-26] MEDS ORDERED: AMOX1TAB61 PO (12:34)
[2021-01-26] MEDS ORDERED: IOHEXOL 300 MG/ML 75 ML VIAL. IV ONE (12:45)
[2021-01-26 13:00] LABS: BASO % 1 % (0-3); EOS # 0.2 x10^3/uL (0.0-0.7); EOS % 3 % (0-3); HEMATOCRIT 40.3 % (36.0-47.0); HEMOGLOBIN 13.4 g/dL (12.0-15.5); LYMPH # 1.9 x10^3/uL (1.0-4.8); LYMPH % 24 % (24-48); MEAN CORPUSCULAR HEMOGLOBIN 32 pg (25-35); MEAN CORPUSCULAR HGB CONC 33 g/dL (31-37); MEAN CORPUSCULAR VOLUME 95 fL (79-100); MONO # 0.8 x10^3/uL (0.0-1.1); MONO % 10 % (0-9); NEUT # 4.9 x10^3uL (1.8-7.7); NEUT % 62 % (31-73); PLATELET COUNT 321 x10^3/uL (140-400); RED BLOOD COUNT 4.26 x10^6/uL (3.50-5.40); WHITE BLOOD COUNT 7.9 x10^3/uL (4.0-11.0)
[2021-01-26 13:11] LABS: CALCIUM 9.3 mg/dL (8.5-10.1); CREATININE 0.7 mg/dL (0.6-1.0); GFR 100.4; POTASSIUM 4.4 mmol/L (3.5-5.1)
--- NOTE | 2021-01-26 13:19 | RAD ---
CT ORBITS/SELLA WITH IV CONTRAST Indication: ABCESS ABOVE RIGHT EYE Comparison study: None. Technique: CT of the orbits was performed following intravenous administration of 75 cc Omnipaque 300 contrast. Sagittal and coronal reconstructions were performed. One or more of the following dose red uction techniques were utilized: Automated exposure control (AEC), Adjustment of mA and/or kV accordi ng to patient size, Use of iterative reconstruction technique such as ASiR, CT scan done according to ALARA and image gently/image wisely Findings: Right supraorbital skin thickening and subcutaneous stranding with peripherally enhancing collection measuring 7 x 8 mm. No post septal inflammation or fluid collection. Orbits and globes are normal. Visualized portions of the paranasal sinuses are well-aerated. No significant periodontal disease. No acute osseous abnormalities are detected. The temporomandibular joints demonstrate normal alignmen t. The visualized mastoid air cells are clear. The visualized portions of the parotid and submandibular glands are normal. The visualized aerodigestive tract is unremarkable. The visualized brain parenchyma is normal in attenuation. IMPRESSION: Right supraorbital cellulitis with 8 mm abscess. No postseptal extension. Electronically signed by: Johnie Ann MD (01/26/2021 1:16 PM) [id number]
[2021-01-26] MEDS ORDERED: HYDROcodone/APAP 5/325MG 1 TAB TABLET ONE (14:28)
[2021-01-26] MEDS ORDERED: HYDROcodone/APAP 5/325MG 1 TAB TABLET PO ONE (14:30)
== END 2021-01-26 14:29 | disposition home or self-care (01) ==
LOC: ER 11:47
DX: L02.01 Cutaneous abscess of face (principal); F17.210 Nicotine dependence, cigarettes, uncomplicated
CPT/HCPCS: 36415; 70481; 80048; 85025; 99285; Q9967